=== PATIENT | male | born 1980 | race Caucasian/White ===

== ENCOUNTER 2022-01-28 12:39 | Emergency (ER) | payer OTHER, SELFPAY ==
--- NOTE | ~2022-01-28 | XR_ITS ---
EXAMINATION: XR abdomen/kub 1V INDICATION: Pelvic pain TECHNIQUE: Supine view of the abdomen is obtained. COMPARISON: None FINDINGS: The bowel gas pattern is normal. There are no dilated loops of bowel. The visualized osseou s structures are unremarkable. IMPRESSION: 1. No radiographic correlate for the patient's symptoms. Reviewed, dictated and finalized at location B.
[2022-01-28 12:49] VITALS: BP 134/81; PULSE 95; RESP 16; TEMP 37.1; O2SAT 98
--- NOTE | 2022-01-28 13:11 | ED.GENADULT ---
HPI - General Adult General Chief complaint: Abdominal Pain Stated complaint: lower abd pain Time Seen by Provider: 01/28/22 13:10 Source: patient, RN notes reviewed and old records reviewed Mode of arrival: ambulatory Limitations: no limitations History of Present Illness HPI narrative: 41-year-old male who presents to [facility] care with complaints of dull pressure in lower abdomen, sharp pain when urinating at times for the past 1-1/2 days. Patient denies any rectal pressure denies any concern for STDs.Patient reports that he feels like he is constipated also, states took Dulcolax with little results. Patient reports that he has been extremely busy at work on event and he has not ate or drank well the past few days. MD complaint: lower abdominal pain Onset (ago): day(s) (1.5 days) Location: abdomen (lower abdomen) Quality: aching, sharp and dull Treatments prior to arrival: other (laxative) Related Data Home Medications Medication Instructions Recorded Confirmed No Home Medications 01/28/22 01/28/22 Allergies Allergy/AdvReac Type Severity Reaction Status Date / Time Penicillins Allergy Hives Verified 01/28/22 13:06 Review of Systems Review of Systems: CONSTITUTIONAL: Denies fever, chills, or sweats. EYES: Denies visual changes, redness, or discharge. ENT: Denies rhinorrhea, congestion, sore throat, or otalgia. CARDIOVASCULAR: Denies chest pain, palpitations, or edema. RESPIRATORY: Denies cough or dyspnea. GASTROINTESTINAL: Positive for lower abdominal pain,no nausea, vomiting, or diarrhea positive for constipation. GENITOURINARY: Positive pain with urination no hematuria. SKIN: Denies rash or itching. MUSCULOSKELETAL: Denies back pain, joint pain, or myalgia. NEUROLOGIC: Denies headache, numbness, or weakness. PSYCHIATRIC: Denies anxiety or depression. All systems reviewed & are unremarkable except as noted in HPI and below PMFSH Past Medical History Medical History (Updated 01/30/22 @ 09:38 by Alexa Eugene NP) No significant past medical history Surgical History Surgical History (Updated 01/30/22 @ 09:31 by Alexa Eugene NP) H/O inguinal hernia repair History of appendectomy Family History Family History (Updated 01/30/22 @ 09:37 by Alexa Eugene NP) Sibling Kidney stones Social History Social History (Updated 01/30/22 @ 09:36 by Alexa Eugene NP) Smoking status: Never smoker Substance use: current Last use: rare social Living arrangements: with family Gender identity (if verbalized by the patient): Male Comments At time of signature agree with nursing documentation of past medical ,surgical, social, and family history. There is no relevant family historypertinent to presenting complaint. Exam Narrative: GENERAL: Well-appearing, well-nourished, and in no acute distress. HEAD: Normocephalic, atraumatic. EYES: PERRLA and EOMI. ENT: Nares clear, no rhinorrhea or epistaxis. Mucous membranes moist.TM's normal with good light reflex, throat pink with no lesions or exudate or swelling NECK: Supple.no lymphadenopathy CHEST: Clear to auscultation. No respiratory distress.SAO2 99% on room air HEART: Regular rate and rhythm. No murmur heard. Normal peripheral pulses. ABDOMEN: Soft, tender over bladder region, nondistended, normal active bowel sounds.No CVA tenderness noted EXTREMITIES: Normal range of motion. No edema. SKIN: Warm, dry, no rash. NEURO: No focal deficits. Alert and oriented x3. Course Course Level of Care: Express Care Visit Vital Signs Vital signs: Vital Signs Temperature 37.1 C 01/28/22 12:49 Pulse Rate 95 01/28/22 12:49 Respiratory Rate 16 01/28/22 12:49 Blood Pressure 134/81 01/28/22 12:49 Pulse Oximetry 98 01/28/22 12:49 Oxygen Delivery Room Air 01/28/22 12:49 Temperature 37.1 C 01/28/22 12:49 Pulse Rate 95 01/28/22 12:49 Respiratory Rate 16 01/28/22 12:49 Blood Pressure 134/81 01/28/22 12:49 Pulse Oxim
== END 2022-01-28 13:47 | disposition home or self-care (01) ==
PROVIDERS: Emergency Provider Registered Nurse
DX: K59.00 Constipation, unspecified (principal); R10.30 Lower abdominal pain, unspecified
CPT/HCPCS: 74018; 81003; 99213; G0463